=== PATIENT | male | born 1980 | race Caucasian/White ===

== ENCOUNTER 2016-10-30 05:04 | Emergency (ER) | payer MEDICAID ==
[2016-10-30 05:37] LABS: CALCIUM 8.7 mg/dL (8.5-10.1); CARBON DIOXIDE 27.6 mmol/L (21-32); CHLORIDE SERUM 103 mmol/L (98-107); CREATININE SERUM 0.7 mg/dL (0.7-1.3); GFR1 > 60 mL/min; GLUCOSE SERUM 111 mg/dL (74-106); POTASSIUM SERUM 3.5 mmol/L (3.5-5.1); SODIUM SERUM 139 mmol/L (136-145)
[2016-10-30 05:41] LABS: ALBUMIN 3.4 g/dL (3.4-5.0); ALKALINE PHOSPHATASE 78 U/L (46-116); ALT/SGPT 25 U/L (16-63); AST/SGOT 17 U/L (15-37); BILIRUBIN TOTAL 1.2 mg/dL (0.20-1.00); TOTAL PROTEIN, SERUM 7.5 g/dL (6.4-8.2)
[2016-10-30 05:54] LABS: BASOPHIL % 0.7 % (0-2); PLATELET COUNT 326 x10^3mcL (130-400); RED CELL DISTRIBUTION WIDTH 14.2 % (11.5-14.5)
[2016-10-30 06:09] VITALS: BP 157/99
== END 2016-10-30 06:09 | disposition home or self-care (01) ==
LOC: ED 05:04
PROVIDERS: Emergency Medicine
DX: R07.9 Chest pain, unspecified (principal)
CPT/HCPCS: 36415; J2060; Q0092

== ENCOUNTER 2018-06-19 03:08 | Emergency (ER) | payer OTHER ==
[~2018-06-19] VITALS: Ht 177.8 cm; Wt 99.8 kg
[2018-06-19 03:15] VITALS: Ht 177.8 cm; Wt 99.8 kg
[2018-06-19 04:31] LABS: BASOPHIL % 0.8 % (0-2)
[2018-06-19 04:32] LABS: PLATELET COUNT 445 x10^3mcL (130-400); RED CELL DISTRIBUTION WIDTH 14.7 % (11.5-14.5)
[2018-06-19 04:44] LABS: CALCIUM 8.8 mg/dL (8.5-10.1); CARBON DIOXIDE 28.8 mmol/L (21-32); CHLORIDE SERUM 100 mmol/L (98-107); CREATININE SERUM 0.9 mg/dL (0.7-1.3); GFR1 > 60 mL/min; GLUCOSE SERUM 101 mg/dL (74-106); POTASSIUM SERUM 3.5 mmol/L (3.5-5.1); SODIUM SERUM 136 mmol/L (136-145)
[2018-06-19 04:54] LABS: ALKALINE PHOSPHATASE 100 U/L (46-116); ALT/SGPT 87 U/L (16-63); AST/SGOT 56 U/L (15-37); BILIRUBIN TOTAL 0.72 mg/dL (0.20-1.00)
[2018-06-19 04:57] LABS: ALBUMIN 2.8 g/dL (3.4-5.0); TOTAL PROTEIN, SERUM 8.8 g/dL (6.4-8.2)
[2018-06-19 05:21] VITALS: BP 158/90
== END 2018-06-19 05:22 | disposition home or self-care (01) ==
LOC: ED 03:08
PROVIDERS: Emergency Medicine
DX: L02.612 Cutaneous abscess of left foot (principal); L03.116 Cellulitis of left lower limb; I10 Essential (primary) hypertension
CPT/HCPCS: 36415; Q0092

== ENCOUNTER 2018-12-24 12:20 | Emergency (ER) | payer OTHER ==
[~2018-12-24] VITALS: Ht 177.8 cm; Wt 90.7 kg
[2018-12-24 12:26] VITALS: Ht 177.8 cm; Wt 90.7 kg
[2018-12-24 13:30] LABS: BASOPHIL % 0.8 % (0-2); PLATELET COUNT 300 x10^3mcL (130-400)
[2018-12-24 13:37] LABS: RED CELL DISTRIBUTION WIDTH 16.4 % (11.5-14.5)
[2018-12-24 13:42] LABS: CALCIUM 8.6 mg/dL (8.5-10.1); CARBON DIOXIDE 29.2 mmol/L (21-32); CHLORIDE SERUM 106 mmol/L (98-107); CREATININE SERUM 0.8 mg/dL (0.7-1.3); GFR1 > 60 mL/min; GLUCOSE SERUM 120 mg/dL (74-106); POTASSIUM SERUM 3.9 mmol/L (3.5-5.1); SODIUM SERUM 142 mmol/L (136-145)
[2018-12-24 13:46] LABS: ALBUMIN 3.5 g/dL (3.4-5.0); ALKALINE PHOSPHATASE 127 U/L (46-116); AST/SGOT 54 U/L (15-37); BILIRUBIN TOTAL 1.06 mg/dL (0.20-1.00)
[2018-12-24 14:00] LABS: ALT/SGPT 88 U/L (16-63)
[2018-12-24 14:02] LABS: TOTAL PROTEIN, SERUM 8.3 g/dL (6.4-8.2)
[2018-12-24 14:15] LABS: AMPHETAMINE QUAL UR POSITIVE (See below)
[2018-12-24 14:55] VITALS: BP 111/66
== END 2018-12-24 14:55 | disposition home or self-care (01) ==
LOC: ED 12:20
PROVIDERS: Emergency Medicine
DX: R07.89 Other chest pain (principal); F15.10 Other stimulant abuse, uncomplicated; F17.210 Nicotine dependence, cigarettes, uncomplicated; R94.5 Abnormal results of liver function studies; I10 Essential (primary) hypertension
CPT/HCPCS: 36415; 99406; J7030; Q0092

== ENCOUNTER 2019-07-31 17:34 | Emergency (ER) | payer OTHER | END 2019-07-31 19:36 | disposition other institution (70) | LOC: ED 17:34 | DX: Z02.89 Encounter for other administrative examinations (principal) ==

== ENCOUNTER 2019-07-31 17:34 | Emergency (ER) | payer OTHER ==
[~2019-07-31] VITALS: Ht 177.8 cm; Wt 99.8 kg
[2019-07-31 17:36] VITALS: Ht 177.8 cm; Wt 99.8 kg
[2019-07-31 19:35] VITALS: BP 135/85
== END 2019-07-31 19:36 | disposition other institution (70) ==
LOC: ED 17:34
DX: R07.89 Other chest pain (principal); G89.29 Other chronic pain; M79.672 Pain in left foot; I10 Essential (primary) hypertension; E27.1 Primary adrenocortical insufficiency
CPT/HCPCS: Q0092

== ENCOUNTER 2020-03-18 23:34 | Emergency (ER) | payer OTHER ==
[~2020-03-18] VITALS: Ht 177.8 cm; Wt 127.9 kg
[2020-03-18 23:45] VITALS: BP 138/87; Ht 177.8 cm; Wt 127.9 kg
== END 2020-03-19 02:07 | disposition home or self-care (01) ==
LOC: ED 23:34
DX: S01.01XA Laceration without foreign body of scalp, initial encounter (principal); I10 Essential (primary) hypertension; W20.8XXA Other cause of strike by thrown, projected or falling object, initial encounter; Y93.89 Activity, other specified; Y92.59 Other trade areas as the place of occurrence of the external cause; Y99.8 Other external cause status
CPT/HCPCS: J2001

== ENCOUNTER 2020-03-30 15:02 | Emergency (ER) | payer OTHER ==
[~2020-03-30] VITALS: Ht 177.8 cm; Wt 125.6 kg
[2020-03-30 15:09] VITALS: Ht 177.8 cm; Wt 125.6 kg
[2020-03-30 15:23] VITALS: BP 151/88
== END 2020-03-30 15:23 | disposition home or self-care (01) ==
LOC: ED 15:02
DX: S01.01XD Laceration without foreign body of scalp, subsequent encounter (principal); X58.XXXD Exposure to other specified factors, subsequent encounter; I10 Essential (primary) hypertension